=== PATIENT | female | born 1985 | race Caucasian/White ===

== ENCOUNTER 2020-01-04 19:02 | Emergency (ER) | payer OTHER ==
[~2020-01-04] VITALS: Ht 165.1 cm; Wt 54.4 kg
[2020-01-04 19:03] VITALS: BP 147/88
[2020-01-04] MEDS ORDERED: BUPROPION XL150 MG PO (19:12)
== END 2020-01-04 20:24 | disposition home or self-care (01) ==
LOC: ER 19:02
DX: S01.111A Laceration without foreign body of right eyelid and periocular area, initial encounter (principal); H53.8 Other visual disturbances; Z79.899 Other long term (current) drug therapy; Z88.2 Allergy status to sulfonamides; W01.10XA Fall on same level from slipping, tripping and stumbling with subsequent striking against unspecified object, initial encounter; Y93.01 Activity, walking, marching and hiking; Y92.89 Other specified places as the place of occurrence of the external cause; Y99.8 Other external cause status